=== PATIENT | male | born 1975 | race Two or more races ===

== ENCOUNTER 2021-01-24 02:37 | Emergency (ER) | payer SELFPAY ==
[~2021-01-24] VITALS: Ht 167.6 cm; Wt 68.0 kg
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
--- NOTE | 2021-01-24 02:40 | NUR ---
[employer] AT BED SIDE
[2021-01-24] MEDS ORDERED: LIDOCAINE 1%-EPI 1:100,000 20 ML VIAL ONE (02:48)
[2021-01-24] MEDS ORDERED: TDAP [DIPH/PERTUSSIS/TET] 0.5 ML VIAL IM ONE ×2 (03:00→04:17)
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
--- NOTE | 2021-01-24 04:17 | NUR ---
Patient discharged to home in stable condition. Written and verbal after care instructions given. Patient verbalizes understanding of instruction.
[2021-01-24 04:20] VITALS: BP 137/80
== END 2021-01-24 04:20 | disposition home or self-care (01) ==
LOC: ER 02:39
DX: S01.311A Laceration without foreign body of right ear, initial encounter (principal); S09.8XXA Other specified injuries of head, initial encounter; F10.129 Alcohol abuse with intoxication, unspecified; F41.9 Anxiety disorder, unspecified; Y00.XXXA Assault by blunt object, initial encounter; Y93.89 Activity, other specified; Y92.89 Other specified places as the place of occurrence of the external cause; Y99.8 Other external cause status; Y90.9 Presence of alcohol in blood, level not specified
CPT/HCPCS: 12011; 70450; 90471; 90715; 99284; J3490